=== PATIENT | female | born 2000 | race Caucasian/White ===

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

== ENCOUNTER 2022-10-18 01:54 | Outpatient (CLI) | payer BC, SELFPAY ==
[2022-10-21 12:20] LABS: TB Interpretation Negative (Negative); TB1 Ag minus Nil 0.01 IU/ml; TB2 Ag minus Nil 0.01 IU/mL
== END 2022-10-18 01:55 | disposition home or self-care (01) ==
PROVIDERS: PCP Nurse Practitioner Family; Visit Provider Nurse Practitioner Family
DX: Z00.00 Encounter for general adult medical examination without abnormal findings (principal); Z11.1 Encounter for screening for respiratory tuberculosis
CPT/HCPCS: 36415; 84443; 86480

== ENCOUNTER 2022-12-16 02:53 | Outpatient (CLI) | payer BC, SELFPAY ==
[2022-12-16 12:14] LABS: TSH (W/Ref FT4) 1.99 uIU/mL (0.36-3.74)
== END 2022-12-16 02:54 | disposition home or self-care (01) ==
PROVIDERS: PCP Nurse Practitioner Family; Visit Provider Nurse Practitioner Family
DX: E03.9 Hypothyroidism, unspecified (principal)
CPT/HCPCS: 36415; 84443

== ENCOUNTER 2023-12-17 02:29 | Outpatient (CLI) | payer BC, SELFPAY ==
[2023-12-17 15:15] LABS: Anion Gap 10.7 mmol/L (3-11); BUN 9 mg/dL (7-18); CO2 27.3 mmol/L (21.0-32.0); CREATININE 0.6 mg/dL (0.55-1.02); Calcium 9.4 mg/dL (8.5-10.1); Chloride 100 mmol/L (98-107); Estimated GFR 130.88 (mL/min/1.73m2); Glucose 86 mg/dL (74-106); Potassium 3.5 mmol/L (3.5-5.1); Sodium 138 mmol/L (136-145); TSH (W/Ref FT4) 1.09 uIU/mL (0.36-3.74)
== END 2023-12-17 02:30 | disposition home or self-care (01) ==
LOC: LBO 02:29
PROVIDERS: PCP Nurse Practitioner Family; Visit Provider Nurse Practitioner Family
DX: E03.9 Hypothyroidism, unspecified (principal); J30.89 Other allergic rhinitis; J30.2 Other seasonal allergic rhinitis; J45.20 Mild intermittent asthma, uncomplicated
CPT/HCPCS: 36415; 80048; 84443

== ENCOUNTER 2024-01-16 02:25 | Outpatient (CLI) | payer BC, SELFPAY ==
[2024-01-19 15:35] LABS: TB Interpretation Negative (Negative); TB2 Ag minus Nil 0.01 IU/mL
== END 2024-01-16 02:26 | disposition home or self-care (01) ==
LOC: LBO 02:25
PROVIDERS: PCP Nurse Practitioner Family; Visit Provider Nurse Practitioner Family
DX: Z00.00 Encounter for general adult medical examination without abnormal findings (principal)
CPT/HCPCS: 36415; 86480

== ENCOUNTER 2024-12-22 04:07 | Outpatient (CLI) | payer BC, SELFPAY ==
[2024-12-22 15:43] LABS: ALT 22 U/L (14-59); AST 13 U/L (15-37); Albumin 4.7 g/dL (3.4-5.0); Alkaline Phosphatase 93 U/L (46-116); Anion Gap 10.6 mmol/L (3-11); BUN 11 mg/dL (7-18); Bilirubin, Total 1.8 mg/dL (0.2-1.0); CO2 27.4 mmol/L (21.0-32.0); Calcium 9.3 mg/dL (8.5-10.1); Chloride 103 mmol/L (98-107); Estimated GFR 130.07 (mL/min/1.73m2); Glucose 91 mg/dL (74-106); Potassium 3.4 mmol/L (3.5-5.1); Sodium 141 mmol/L (136-145); TSH (W/Ref FT4) 0.07 uIU/mL (0.36-3.74); Total Protein 8.0 g/dL (6.4-8.2)
== END 2024-12-22 04:08 | disposition home or self-care (01) ==
LOC: LBO 04:08
PROVIDERS: PCP Nurse Practitioner Family; Visit Provider Nurse Practitioner Family
DX: Z00.00 Encounter for general adult medical examination without abnormal findings (principal); E03.9 Hypothyroidism, unspecified; J45.20 Mild intermittent asthma, uncomplicated
CPT/HCPCS: 36415; 80053; 84439; 84443

== ENCOUNTER 2025-02-23 04:21 | Outpatient (CLI) | payer BC, SELFPAY ==
[2025-02-23 17:20] LABS: TSH (W/Ref FT4) 0.46 uIU/mL (0.36-3.74)
== END 2025-02-23 04:22 | disposition home or self-care (01) ==
LOC: LBO 04:21
PROVIDERS: PCP Nurse Practitioner Family; Visit Provider Nurse Practitioner Family
DX: E03.9 Hypothyroidism, unspecified (principal)
CPT/HCPCS: 36415; 84443